=== PATIENT | female | born 1950 | race Caucasian/White ===

== ENCOUNTER → 2019-01-29 | Outpatient (CLI) | payer MEDICARE ==
[~2019-01-29] MED LIST: ASCO-262 PO; ASPI-983 PO; CEVI30CA7 PO; CHOL400T PO; CLON0.1T PO; CYAN500T2 PO; LOSA50TA63 PO; LYSI500T PO; MAGN400T39 PO; METO-387 PO; MULT-35 PO; OMG1KC PO; ROSU5TAB12 PO; VITA400C60 PO
--- NOTE | 2019-01-29 18:47 | Diagnostic Imaging Report ---
INDICATION: Routine screening. Comparison is made with prior mammograms from 11/23/2015 and 06/18/2014. 2-D and 3-D bilateral screening mammography was performed with Computer-Aided Detection (CAD) system. FINDINGS: Scattered fibroglandular densities are identified bilaterally. The parenchymal pattern is stable. Benign-appearing calcifications are noted in both breasts. Intraparenchymal lymph node in the upper-outer left breast is stable. No new mass or malignant-appearing microcalcifications are seen. The axillae are unremarkable. IMPRESSION: No mammographic features suspicious for malignancy are identified. ACR BI-RADS Category 2: Benign findings. Result letter will be mailed to the patient. Note: At least 10% of breast cancer is not imaged by mammography. Dictated by: Dictated on workstation # [id number]
== END ==
LOC: RAD 08:15
PROVIDERS: ATTEND Family Medicine
DX: Z12.31 Encounter for screening mammogram for malignant neoplasm of breast (principal); Z00.00 Encounter for general adult medical examination without abnormal findings
CPT/HCPCS: 77067

== ENCOUNTER → 2020-10-19 | Outpatient (CLI) | payer MEDICARE ==
[~2020-10-19] MED LIST changes: +ASPI-1238 PO; -ASPI-983 PO; +CLN.1T PO; -CLON0.1T PO; -CYAN500T2 PO; +CYAN500T64 PO; -LYSI500T PO; +LYSI500T10 PO; -METO-387 PO; +MTP25TSR PO; -ROSU5TAB12 PO; +ROSU5TAB13 PO
--- NOTE | 2020-10-19 11:37 | Diagnostic Imaging Report ---
PROCEDURE: MRI lumbar spine. TECHNIQUE: Multiplanar, multisequence MRI of the lumbar spine was performed without contrast. INDICATION: Multiple falls. History of hip pain. Back pain. COMPARISON: None FINDINGS: For the purposes of this exam, last well-formed disc space is denoted to be L5-S1 level. Evaluation of the static alignment shows slight grade 1 anterolisthesis at the L3-L4 and L4-L5 levels. There is no evidence of jumped facets. Vertebral body heights are maintained. There is no acute fracture. Evaluation of the marrow signal demonstrates Modic type I change at the T11-T12 level. Marrow signal is otherwise unremarkable. There is also mild multilevel intervertebral disc height loss. Visualized portions of the distal cord are unremarkable. Conus terminates at approximately the L1 level. No abnormal intrathecal filling defects are seen. Pre and paravertebral soft tissue structures are unremarkable. Axial images demonstrate the following: T11-T12: There is broad-based posterior disc bulge and bilateral facet arthropathy. As a result, there is minimal narrowing of the spinal canal and left neuroforamen. Right neuroforamen is unremarkable. T12-L1 and L1-L2: There is no large disc bulge or focal protrusion. There is no significant spinal canal or neuroforaminal stenosis. L2-L3: There is mild broad-based posterior disc bulge and bilateral ligamentum flavum laxity and facet arthropathy. As a result, there is mild narrowing of the spinal canal and bilateral neural foramen. L3-L4: There is mild broad-based posterior disc bulge and bilateral ligamentum laxity and facet arthropathy. As a result, there is [id number] narrowing of the spinal canal and mild narrowing of the bilateral neural foramen. L4-L5: There is broad-based posterior disc bulge and bilateral ligamentum flavum laxity and facet arthropathy. As a result, there is [id number] narrowing of the spinal canal and bilateral neural foramen. L5-S1: There is bilateral facet arthropathy, but no large disc bulge or focal protrusion. There is no significant spinal canal or neuroforaminal stenosis. IMPRESSION: 1. [id number]-cr-[id number] multilevel degenerative changes of the lumbar spine as described above. 2. No acute fracture or dislocation. Dictated by: Dictated on workstation # [id number]
--- NOTE | 2020-10-19 13:08 | Diagnostic Imaging Report ---
PROCEDURE: MRI pelvis without contrast. TECHNIQUE: Multiplanar, multisequence MRI of the pelvis was performed without contrast. INDICATION: Multiple falls with right greater than left hip and low back pain. COMPARISON: No relevant comparison. FINDINGS: The sacrococcygeal marrow signal intensity appears normal. There are degenerative changes to the SI joints without appreciable ankylosis or separation. There are degenerative changes to the symphysis without diastasis. Signal intensity of the bilateral superior and inferior pubic rami is unremarkable. There is no evidence for fracture, insufficiency injury, or bone contusion. No marrow edema. No findings to suggest pelvic bony infection. The pelvic sidewalls and iliacus musculature appear unremarkable. No inguinal canal mass, hernia, or fluid collection is found. The sacrococcygeal alignment and curvature appear normal. There is no adnexal lesion. Given age, the endometrium, particularly at the lower uterine segment and cervix, is somewhat thickened. On a nonemergent basis, an outpatient pelvic ultrasound would be suggested as further evaluation. The femoral heads themselves are intact and directed into the acetabula. No fracture. There is bilateral hip osteoarthritis. IMPRESSION: 1. No findings of acute or subacute fracture or insufficiency type injury to the bony pelvis. There are chronic degenerative changes. 2. Prominence of the endometrium at the lower uterine segment and cervix. The latter may reflect a superimposed cervical nabothian cyst. A nonemergent outpatient pelvic ultrasound is suggested. Dictated by: Dictated on workstation # [id number]
== END ==
LOC: RAD 08:45
PROVIDERS: ATTEND Family Medicine
DX: M47.814 Spondylosis without myelopathy or radiculopathy, thoracic region (principal); M47.816 Spondylosis without myelopathy or radiculopathy, lumbar region; M47.817 Spondylosis without myelopathy or radiculopathy, lumbosacral region; M51.24 Other intervertebral disc displacement, thoracic region; M51.25 Other intervertebral disc displacement, thoracolumbar region; M51.26 Other intervertebral disc displacement, lumbar region; M51.27 Other intervertebral disc displacement, lumbosacral region; M48.04 Spinal stenosis, thoracic region; M48.05 Spinal stenosis, thoracolumbar region; M48.061 Spinal stenosis, lumbar region without neurogenic claudication; M48.07 Spinal stenosis, lumbosacral region; M16.9 Osteoarthritis of hip, unspecified; W19.XXXA Unspecified fall, initial encounter
CPT/HCPCS: 72148; 72195

== ENCOUNTER 2023-02-08 10:01 | Outpatient (RCR) | payer MEDICARE ==
[~2023-02-08 10:01] MED LIST changes: -CYAN500T64 PO; +CYAN500T8 PO
== END 2023-02-12 | disposition home or self-care (01) ==
LOC: MERGE 10:01
PROVIDERS: ATTEND Family Medicine
DX: M54.50 Low back pain, unspecified (principal); M25.552 Pain in left hip; I10 Essential (primary) hypertension

== ENCOUNTER 2023-02-21 13:30 | Outpatient (RCR) | payer MEDICARE | END 2023-03-15 | disposition home or self-care (01) | PROVIDERS: ATTEND Family Medicine | DX: M54.50 Low back pain, unspecified (principal); M25.552 Pain in left hip; I10 Essential (primary) hypertension ==